=== PATIENT | female | born 1945 | race Caucasian/White ===

== ENCOUNTER → 2016-06-20 | Outpatient (CLI) | payer OTHER ==
[~2016-06-20] VITALS: Ht 167.6 cm; Wt 117.9 kg
[~2016-06-20] MED LIST: BENADRYL25 MG PO; FLEXERIL PO; LISINOPRIL10 MG PO; MELATONIN3 MG PO; NEURONTIN 300300 M1 PO; SIMVASTATIN40 MG PO; VITAMIN B-12500 MCG PO; VITAMIN E400 UNI5 PO
[2016-06-20 10:54] LABS: URINE BILIRUBIN NEGATIVE (Negative); URINE BLOOD 1+ (Negative); URINE COLOR YELLOW; URINE GLUCOSE-RANDOM* TRACE (Negative); URINE KETONES NEGATIVE (Negative); URINE LEUKOCYTES-REFLEX 1+ (Negative); URINE PROTEIN (DIPSTICK) NEGATIVE (Negative); URINE SPECIFIC GRAVITY <= 1.005 (1.003-1.035); URINE UROBILINOGEN 0.2 E.U./dl (0.2-1.0)
[2016-06-20 10:56] LABS: HEMATOCRIT 41.9 % (37.0-47.0); HEMOGLOBIN 13.8 gm/dL (12.0-15.0); MCH 29.6 pg (26.0-34.0); MCV 89.6 fL (80.0-100.0); RBC 4.67 mil/uL (4.20-5.00); RDW 13.9 % (10.5-14.5); WBC 6.6 thou/uL (4.0-11.0)
[2016-06-20 11:04] LABS: CALCIUM 9.6 mg/dL (8.5-10.1); CREATININE 2.2 mg/dL (0.6-1.0); POTASSIUM 4.9 mmol/L (3.5-5.1)
[2016-06-20 11:38] LABS: CASTS None Seen /LPF (None Seen); CRYSTALS None Seen /LPF (None Seen); SQUAMOUS 4-10 Moderate /LPF (0-3)
[2016-06-20 11:39] LABS: URINE RBC 0-2 Rare /HPF (0-2)
== END ==
LOC: PAC 10:23 → PRE 06-25 06:26 → EDSTATUS 06-25 13:26 → PRE 06-25 14:16
PROVIDERS: Neurological Surgery
DX: M47.896 Other spondylosis, lumbar region (principal)